=== PATIENT | female | born 1980 | race American Indian/Alaskan Native ===

== ENCOUNTER 2019-05-31 21:15 | Emergency (ER) | payer OTHER ==
[2019-05-31] MEDS ORDERED: TETANUS,DIPH,PERTUSS(ACELL) VACCINE 0.5 ML SYRINGE IM ONE (22:48)
[2019-05-31 23:40] LABS: Basophils % (Auto) 0.3 % (0.0-1.8); Eosinophils % (Auto) 0.2 % (0.0-4.3); Hematocrit 38.9 % (30.3-42.9); Hemoglobin 12.4 gm/dl (10.1-14.3); Lymphocytes % (Auto) 9.1 % (13.4-35.0); Mean Corpuscular HGB Conc 32 % (30-34); Mean Corpuscular Volume 80 fl (79-97); Platelet Count 349 K/mm3 (140-440); Red Blood Count 4.86 M/mm3 (3.65-5.03); Red Cell Distribution Width 16.1 % (13.2-15.2)
[2019-05-31 23:41] LABS: Lymphocytes # (Auto) 1.6 K/mm3 (1.2-5.4); Monocytes # (Auto) 1.4 K/mm3 (0.0-0.8)
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
[2019-05-31 23:49] LABS: INR 1.13 (0.87-1.13)
[2019-05-31 23:50] LABS: Partial Thromboplastin Time 30.4 Sec. (24.2-36.6)
[2019-05-31 23:59] LABS: Alanine Aminotransferase 11 units/L (7-56); Albumin 4.2 g/dL (3.9-5); BUN/Creatinine Ratio 15; Blood Urea Nitrogen 12 mg/dL (7-17); Calcium 9.2 mg/dL (8.4-10.2); Hemolysis Index 3
[2019-06-01 00:28] LABS: Bacteria,Urine 1+ /HPF (Negative); Bilirubin,Urine NEG (Negative); Blood,Urine MOD (Negative); Color,Urine Yellow (Yellow); Mucus,Urine 3+ /HPF; Urobilinogen,Urine < 2.0 mg/dL (<2.0)
[2019-06-01 00:29] LABS: HCG Qualitative,Urine Negative (Negative)
[2019-06-01] MEDS ORDERED: MORPHINE 4 MG/1 ML INJ IV ONE (00:36)
[2019-06-01] MEDS ORDERED: ONDANSETRON 4 MG/2 ML INJ IV ONE (00:36)
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
[2019-06-01] MEDS ORDERED: TETANUS,DIPH,PERTUSS(ACELL) VACCINE 0.5 ML SYRINGE IM ONE (01:01)
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
[2019-06-01] MEDS ORDERED: LIDOCAINE (1%) 10 MG/1 ML VIAL 20 ML MDV INFILTRATI ONE (03:05)
[2019-06-01] MEDS ORDERED: SODIUM CHLORIDE IRRI 500 ML 500 ML IR ONE (03:16)
[2019-06-01] MEDS ORDERED: SODIUM CHLORIDE 0.9% IRR 500 ML BOTTLE IR ONE (03:19)
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
[2019-06-01 05:30] VITALS: BP 126/65
== END 2019-06-01 05:20 | disposition home or self-care (01) ==
LOC: ED 21:15
DX: S81.012A Laceration without foreign body, left knee, initial encounter (principal); R07.89 Other chest pain; R10.9 Unspecified abdominal pain; R51 Headache; V49.49XA Driver injured in collision with other motor vehicles in traffic accident, initial encounter; Y93.89 Activity, other specified; Y92.488 Other paved roadways as the place of occurrence of the external cause; Y99.8 Other external cause status
CPT/HCPCS: 12002; 36415; 70450; 71275; 73562; 74177; 80053; 81001; 81025; 85025; 85610; 85730; 90471; 90715; 96374; 96375; 99285; J2270; J2405; Q9967